=== PATIENT | male | born 1945 | race Caucasian/White ===

== ENCOUNTER 2017-10-09 16:54 | Emergency (ER) | payer MEDICARE ==
[~2017-10-09] VITALS: Ht 167.6 cm; Wt 70.3 kg
[2017-10-09 17:01] VITALS: BP_SYST 202
[2017-10-09] MEDS ORDERED: PERC10 GT (17:07)
[2017-10-09] MEDS ORDERED: MET10 PO (17:07)
[2017-10-09] MEDS ORDERED: NACL 0.9% 1,000 ML IV SCH (17:32)
[2017-10-09 17:54] LABS: BILIRUBIN,URINE NEGATIVE (NEGATIVE); CLARITY/URINE CLEAR (CLEAR); COLOR,URINE YELLOW (YELLOW); GLUCOSE,URINE NEGATIVE (NEGATIVE); KETONES,URINE NEGATIVE (NEGATIVE); LEUKOCYTE ESTERASE ,URINE NEGATIVE (NEGATIVE); NITRITE, URINE NEGATIVE (NEGATIVE); PH,URINE 7.5 (5.0-8.0); PROTEIN URINE TRACE (NEGATIVE)
[2017-10-09] MEDS ORDERED: METHADONE HCL 10 MG TABLET PO ONE (18:00)
[2017-10-09 18:08] LABS: HEMATOCRIT 38.7 % (36-54); HEMOGLOBIN 12.4 g/dL (14.0-18.0); LYMPHOCYTES # (AUTO) 0.4 K/uL (1.0-5.5); MEAN CORPUSCULAR HEMOGLOBIN 26 pg (27-31); MEAN CORPUSCULAR HGB CONC 32 % (32-36); MEAN CORPUSCULAR VOLUME 81 fL (79.0-98.0); MONOCYTES % (AUTO) 5.3 % (1.7-9.3); NEUTROPHILS # (AUTO) 16.4 K/uL (1.8-7.7); NEUTROPHILS % (AUTO) 90.8 % (40.0-70.0); PLATELET COUNT (AUTO) 363 K/uL (130-430); RED BLOOD CELL COUNT(AUTO) 4.79 MIL/uL (4.2-6.2); RED CELL DISTRIBUTION WIDTH 13.9 % (9.0-15.0); WHITE BLOOD COUNT (AUTO) 18.2 K/uL (4.8-10.8)
[2017-10-09 18:10] LABS: BASOPHILS # (AUTO) 0.1 K/uL (0.0-0.2); BASOPHILS % (AUTO) 0.4 % (0.0-2.0); EOSINOPHILS # (AUTO) 0.3 K/uL (0.0-0.4); EOSINOPHILS % (AUTO) 1.5 % (0.0-4.0)
[2017-10-09 18:11] LABS: BLOOD, URINE TRACE (NEGATIVE)
[2017-10-09 18:17] LABS: BACTERIA,URINE FEW /HPF (None Seen); MUCUS,URINE None Seen /LPF (None Seen); WBC,URINE 0-3 /HPF (0-3)
[2017-10-09 18:30] LABS: ANION GAP 6 (5-15); CALCIUM 9.5 mg/dL (8.4-11.0); CHLORIDE 88 mmol/L (98-107); CREATININE 0.75 mg/dL (0.55-1.30); GLUCOSE 128 mg/dL (70-99); POTASSIUM 4.1 mmol/L (3.5-5.1); SODIUM SERUM 126 mmol/L (136-145); UREA NITROGEN, BLOOD 25 mg/dL (8-21)
[2017-10-09 18:36] LABS: ALANINE AMINOTRANSFERASE 29 U/L (12-78); ALBUMIN 3.1 g/dL (3.4-4.8); ASPARTATE AMINOTRANSFERASE 30 U/L (10-37); INR 1.1 (0.80-1.20); LIPASE 66 U/L (73-393); PROTHROMBIN TIME 10.9 SECS (9.5-12.5); TOTAL BILIRUBIN 0.6 mg/dL (0.0-1.0)
[2017-10-09] MEDS ORDERED: NACL 0.9% 1,000 ML IV ONE (19:00)
[2017-10-09] MEDS ORDERED: CEFEPIME 1 GM in D5W 50 ML IV ONE ×2 (19:00→19:45)
[2017-10-09] MEDS ORDERED: VANCOMYCIN HCL 1,000 MG in NS 250 ML IV ONE ×2 (19:00→19:45)
[2017-10-09] MEDS ORDERED: hydrALAZINE HCL 20 MG/ML VIAL IVP ONE (19:15)
[2017-10-09] MEDS ORDERED: CEFEPIME 1 GM/VIAL (MAXIPIME) ONE (19:51)
[2017-10-09] MEDS ORDERED: ONDANSETRON HCL 4 MG/2 ML VIAL IVP ONE (21:00)
[2017-10-09] MEDS ORDERED: HYDROmorphone 1 MG INJ. 1 MG/ML AMPUL IVP ONE (21:00)
[2017-10-09] MEDS ORDERED: VANCOMYCIN HCL 1000 MG/VIAL IV ONE (21:01)
[2017-10-10 00:58] VITALS: BP_SYST 155
== END 2017-10-10 00:58 | disposition short-term general hospital (02) ==
LOC: SED 16:54
DX: A41.9 Sepsis, unspecified organism (principal); J18.9 Pneumonia, unspecified organism; R00.0 Tachycardia, unspecified; J44.9 Chronic obstructive pulmonary disease, unspecified; I10 Essential (primary) hypertension; Z97.8 Presence of other specified devices; Z88.8 Allergy status to other drugs, medicaments and biological substances
CPT/HCPCS: 36415; 71045; 80053; 81000; 83605; 83690; 83880; 84484; 85025; 85610; 85730; 87040; 87086; 93005; 96361; 96365; 96367; 96375; 99285; J0360; J0692; J1170; J2405; J3370; J7030; J7050